=== PATIENT | female | born 1960 | race Caucasian/White ===

== ENCOUNTER 2019-06-17 19:19 | Emergency (ER) | payer MEDICAID ==
[~2019-06-17] VITALS: Ht 167.6 cm; Wt 77.0 kg
--- NOTE | 2019-06-17 19:35 | NUR ---
not in lobby
--- NOTE | 2019-06-17 20:06 | NUR ---
Spoke with MD Rod re pt's high BP. to evaluate pt. now and contreras in new orders for pain management.
[2019-06-17] MEDS ORDERED: ondansetron/PF 4mg/2ml inj IV ONE ×2 (20:10)
[2019-06-17] MEDS ORDERED: normal saline 1000ML IV soln IVB ONE (20:10)
[2019-06-17] MEDS ORDERED: morphine 4 MG/ML inj SYRINge IV ONE (20:10)
[2019-06-17] MEDS ORDERED: morphine 4 MG/ML inj SYRINge IV PRN (20:10)
--- NOTE | 2019-06-17 20:31 | NUR ---
Pt. transported by tech to CT/X-ray at this time.
[2019-06-17 20:39] LABS: BASOPHILS % (AUTO) 0.4 % (0-1); EOSINOPHILS # (AUTO) 0.1 X10'3 (0-0.9); EOSINOPHILS % (AUTO) 0.6 % (0-6); HEMATOCRIT 42.4 % (35.0-45.0); HEMOGLOBIN 14.5 g/dl (12.0-16.0); LYMPHOCYTES # (AUTO) 1.3 X10'3 (1.1-4.8); LYMPHOCYTES % (AUTO) 11.3 % (21-51); MEAN CORPUSCULAR HEMOGLOBIN 29.9 PG (27.0-31.0); MEAN CORPUSCULAR HGB CONC 34.3 g/dL (33.0-36.5); MEAN CORPUSCULAR VOLUME 87.3 FL (78-98); MONOCYTES # (AUTO) 0.6 X10'3 (0-0.9); MONOCYTES % (AUTO) 5.1 % (2-12); NEUTROPHILS # (AUTO) 9.4 X10'3 (1.8-7.7); NEUTROPHILS % (AUTO) 82.6 % (42-75); PLATELET COUNT 207 X10'3 (140-440); RED BLOOD COUNT 4.85 X10'6 (4.20-5.60); RED CELL DISTRIBUTION WIDTH 15.2 % (11.5-14.5); WHITE BLOOD COUNT 11.3 X10'3 (4.5-11.0)
[2019-06-17 20:44] LABS: ALANINE AMINOTRANSFERASE 40 U/L (12-78); ALBUMIN 3.8 G/DL (3.4-5.0); ALKALINE PHOSPHATASE 136 IU/L (46-116); ANION GAP 10 (8-16); ASPARTATE AMINO TRANSFERASE 29 U/L (10-37); BILIRUBIN,TOTAL 0.3 MG/DL (0.1-1.0); BLOOD UREA NITROGEN 20 MG/DL (7-18); BUN/CREATININE RATIO 20.4 (6.6-38.0); CHLORIDE 104 MMOL/L (99-107); CREATININE 0.98 MG/DL (0.40-0.90); GLUCOSE 145 MG/DL (70-104); POTASSIUM 3.4 MMOL/L (3.5-5.1); SODIUM 141 MMOL/L (135-145); TOTAL CARBON DIOXIDE 27.3 MMOL/L (24-32); TOTAL PROTEIN 7.5 G/DL (6.4-8.2); eGFR 59 ML/MIN
[2019-06-17 20:47] LABS: LIPASE 98 U/L (73-393); TROPONIN I < 0.04 NG/ML (0.0-0.05)
[2019-06-17] MEDS ORDERED: hydrALAZINE 20mg/ml inj. IV ONE ×2 (21:00→21:15)
[2019-06-17] MEDS ORDERED: LORazepam 2 mg/ml vial IV ONE (21:00)
[2019-06-17 21:38] VITALS: BP 158/99
== END 2019-06-17 21:40 | disposition home or self-care (01) ==
LOC: ER 19:20
DX: R10.10 Upper abdominal pain, unspecified (principal); Z60.2 Problems related to living alone
CPT/HCPCS: 36415; 71045; 74176; 80053; 83605; 83690; 84484; 85025; 93005; 96374; 96375; 99284; J0360; J2060; J2270; J2405; J7030